=== PATIENT | male | born 1960 | race Caucasian/White ===

== ENCOUNTER 2022-04-30 01:10 | Day surgery (SDC) | payer BC, SELFPAY ==
[2022-04-19 10:14] VITALS: BMI 36.6
--- NOTE | 2022-04-29 15:47 | PM.HPGS ---
History of Present Illness History of Present Illness Consent: Risks, benefits, and alternatives have been discussed and questions answered. Patient agrees to proceed with procedure. Chief complaint: neoplasm screening Narrative: Jacky Casey is a 61 year old male Who is referred for colon cancer screening. His last colonoscopy was 10 years ago and was unremarkable except for showing internal hemorrhoids. Review of Systems Review of Systems: All systems reviewed & are unremarkable except as noted in HPI and below PMFSH Family History Family History Mother Hypertension Father Malignant neoplasm of prostate Family history of heart disease in male family member before age 55 Family history of cardiovascular disease Acute myocardial infarction AA (aortic aneurysm) Sibling No problems noted. 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 Gender identity (if verbalized by the patient): Male Spiritual care concerns: No Meds Home Medications and Allergies Home Medications Medication Instructions Recorded Confirmed Type atorvastatin 40 mg tablet See Rx Instructions .Route 02/21/22 04/30/22 Rx .COMPLEX #90 tabs magnesium 200 mg tablet 400 mg PO DAILY 04/19/22 04/30/22 History omega 1-sfs-owk-fish oil 1,200 mg 1 cap PO DAILY 04/19/22 04/30/22 History (144 mg-216 mg) capsule (Fish Oil) Allergies Allergy/AdvReac Type Severity Reaction Status Date / Time Sulfa (Sulfonamide Allergy Mild RASH Verified 04/30/22 07:39 Antibiotics) Penicillins Allergy Unknown Unknown Verified 04/30/22 07:39 sulfamethizole Allergy Unknown Unknown Verified 04/30/22 07:39 trimethoprim Allergy Unknown Unknown Verified 04/30/22 07:39 Exam Const: General: alert Orientation/consciousness: patient oriented x3 Resp: Auscultation: clear to auscultation bilaterally Cardio: Rhythm: regular rhythm GI: GI Palp: Yes Soft to palpation and No Tenderness to palpation present (GI) Neuro: General: patient oriented x3 Assessment and Plan Assessment and plan (1) Screening for colon cancer: Code(s): Z12.11 - Encounter for screening for malignant neoplasm of colon Status: Acute Assessment and Plan: Colonoscopy with possible biopsy or polypectomy or cautery or injection of substances.
[2022-04-30 07:42] VITALS: BP 123/82; PULSE 72; RESP 20; TEMP 36.6; O2SAT 98
[2022-04-30] MEDS: LACTATED RINGERS 1,000 ML 150 ML IV CONT (07:58)
--- NOTE | 2022-04-30 08:06 | P.PNAN_ITS ---
Anes - Initial Pre Proc Eval Procedure: Operation Date: 04/30/22 08:30 Proposed Procedures p Screening Colonoscopy - Lion Hyatt MD Date/Time: 04/30/22 08:06 Surgeon: Lion Hyatt MD Pre Op Diagnosis: neoplasm screening Patient Data Age: 61 Gender: M Height: 1.78 m Weight: 109.1 kg Last Vital Signs Temp 97.8 F 04/30/22 07:42 Pulse 72 04/30/22 07:42 Resp 20 04/30/22 07:42 BP 123/82 04/30/22 07:42 Pulse Ox 98 04/30/22 07:42 O2 Del Method Room Air 04/30/22 07:42 Allergies Allergy/AdvReac Type Severity Reaction Status Date / Time Sulfa (Sulfonamide Allergy Mild RASH Verified 04/30/22 07:39 Antibiotics) Penicillins Allergy Unknown Unknown Verified 04/30/22 07:39 sulfamethizole Allergy Unknown Unknown Verified 04/30/22 07:39 trimethoprim Allergy Unknown Unknown Verified 04/30/22 07:39 Home Medications Medication Instructions Recorded Confirmed Type atorvastatin 40 mg tablet See Rx Instructions .Route 02/21/22 04/30/22 Rx .COMPLEX #90 tabs magnesium 200 mg tablet 400 mg PO DAILY 04/19/22 04/30/22 History omega 7-oxh-yzs-fish oil 1,200 mg 1 cap PO DAILY 04/19/22 04/30/22 History (144 mg-216 mg) capsule (Fish Oil) Patient hx anesthesia problems: none Family hx anesthesia problems: none Results Review: All pre-operative results and documents have been reviewed as part of the pre- operative evaluation. [facility] Family History Family History Mother Hypertension Father Malignant neoplasm of prostate Family history of heart disease in male family member before age 55 Family history of cardiovascular disease Acute myocardial infarction AA (aortic aneurysm) Sibling No problems noted. 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 Informed Consent: The patient's anesthetic plan and its attendant risks and benefits were discussed with the patient/family/POA. Questions were solicited and answers provided to the satisfaction of the patient/family/POA.
[2022-04-30] MEDS: SIMETHICONE ORAL SUSPENSION 20 MG/0.3 ML 30 ML BOTTLE 0.6 ML IRRIGATION (08:33)
[2022-04-30 08:44] VITALS: BP 102/66; PULSE 67; RESP 20; O2SAT 96
[2022-04-30 08:54] VITALS: BP 102/66; PULSE 67; RESP 20; O2SAT 96
[2022-04-30 09:04] VITALS: BP 111/75; PULSE 69; RESP 21; O2SAT 98
== END 2022-04-30 09:13 | disposition home or self-care (01) ==
PROVIDERS: PCP Family Medicine; Visit Provider Internal Medicine Gastroenterology
PROC: 0DJD8ZZ Inspection of Lower Intestinal Tract, Via Natural or Artificial Opening Endoscopic (ICD-10-PCS; CPT 45378; principal; 2022-04-30 08:30)
DX: Z12.11 Encounter for screening for malignant neoplasm of colon (principal); K57.30 Diverticulosis of large intestine without perforation or abscess without bleeding; K64.8 Other hemorrhoids; E66.01 Morbid (severe) obesity due to excess calories; Z68.34 Body mass index [BMI] 34.0-34.9, adult
CPT/HCPCS: 45378; J2704; J7120